=== PATIENT | female | born 1950 | race Two or more races ===

== ENCOUNTER 2023-05-24 08:34 | Emergency (ER) | payer OTHER ==
[~2023-05-24] VITALS: Ht 160 cm; Wt 81.6 kg
[2023-05-24] MEDS ORDERED: COZAAR100 MG PO (09:23)
[2023-05-24] MEDS ORDERED: GLUMETZA500 MG PO (09:23)
[2023-05-24] MEDS ORDERED: CRESTOR40 MG PO (09:23)
[2023-05-24] MEDS ORDERED: SYNTHROID75 MCG PO (09:24)
[2023-05-24 10:39] LABS: HEMATOCRIT 38.4 % (36.0-45.00); MEAN CELL VOLUME 90.2 fL (80.00-100.00); MEAN CORPUSCULAR HEMOGLOBIN 30.5 pg (27.00-32.0); MEAN CORPUSCULAR HGB CONC 33.8 g/dl (32.0-36.0); PLATELET COUNT 436 K/uL (150-450); RED BLOOD COUNT 4.26 M/uL (4.00-6.00); RED CELL DISTRIBUTION WIDTH 14.5 % (11.5-14.5)
[2023-05-24 12:32] LABS: ABG PH 7.456 (7.35-7.45); ABG PO2 84.4 mmHg (80-100); ABG pCO2 35.8 mmHg (35-45); BASE EXCESS 1.2 mmol/l; BICARBONATE 24.7 mmol/l (23-25); SaO2 96.9 %; Tco2 25.8 mmol/l; allen test SATISFACTORY; o2 21 %; puncture site RADIAL LEFT
== END 2023-05-24 12:54 | disposition home or self-care (01) ==
LOC: ER 08:35
PROVIDERS: General Practice
DX: U07.1 COVID-19 (principal); E11.9 Type 2 diabetes mellitus without complications; Z79.84 Long term (current) use of oral hypoglycemic drugs; I10 Essential (primary) hypertension; E03.9 Hypothyroidism, unspecified

== ENCOUNTER 2024-07-07 09:15 | Inpatient (IN) | payer OTHER ==
[~2024-07-07] VITALS: Ht 160 cm; Wt 80.7 kg
[~2024-07-07 09:15] MED LIST: COZAAR100 MG PO; CRESTOR40 MG PO; GLUMETZA500 MG PO; SYNTHROID75 MCG PO
[2024-07-07] MEDS ORDERED: ZETIA10 MG PO (09:28)
[2024-07-07] MEDS ORDERED: LIPITOR40 M1 PO (09:28)
[2024-07-07] MEDS ORDERED: CARVEDILOL6.25 M1 PO (09:28)
[2024-07-07 10:15] LABS: URINE BACTERIA 194.5 uL (0.0-1933); URINE EPITHELIAL CELLS 8.7 uL (0.0-38.8); URINE RBC 8.8 uL (0.0-20.8); URINE WBC 31.9 uL (0.0-23.2)
[2024-07-07 10:18] VITALS: BP 112/72
[2024-07-07 10:18] LABS: URINE APPEARANCE Clear; URINE BILIRRUBIN Negative (NEGATIVE); URINE BLOOD Small; URINE COLOR Yellow; URINE GLUCOSE Negative (NEGATIVE); URINE KETONE Negative (NEGATIVE); URINE LEUKOCYTE Trace; URINE NITRATE Negative; URINE PROTEIN Negative (NEGATIVE); URINE UROBILINOGEN 0.2 E.U./dl
[2024-07-07 10:21] LABS: URINE CAST 0.29 uL (0.0-1.40)
[2024-07-07 10:22] VITALS: BP 134/90
[2024-07-07 10:56] LABS: ALBUMIN 3.5 gm/dL (3.4-5.0); BILIRUBIN TOTAL 0.71 mg/dL (0.3-1.2); CALCIUM 9.9 mg/dL (8.5-10.1); CHOL HDL RATIO 2.2 (0-5.0); CREATININE SERUM 0.99 mg/dL (0.55-1.02); GFR 54.98; GLOBULINA 3.8 G/DL (2.4-3.5); POTASSIUM 3.84 mEq/L (3.5-5.1); TOTAL PROTEIN 7.3 gm/dL (6.4-8.2)
[2024-07-07 10:57] LABS: INR 1.03; PARTIAL THROMBOPLASTIN TIME 22.2 SECONDS (22.0-34.0); PROTHROMBIN TIME 11.2 SECONDS (9.0-11.5)
[2024-07-07 11:36] LABS: RH POSITIVE
[2024-07-07 12:07] LABS: HEMATOCRIT 36.1 % (36.0-45.00); HEMOGLOBIN 12.2 g/dL (12.0-15.00); MEAN CORPUSCULAR HEMOGLOBIN 31.4 pg (27.00-32.0); MEAN CORPUSCULAR HGB CONC 33.8 g/dl (32.0-36.0); PLATELET COUNT 305 K/uL (150-450); RED BLOOD COUNT 3.88 M/uL (4.00-6.00)
[2024-07-13] MEDS ORDERED: VANCOMYCIN HCL 1,000 MG VIAL ONE ×2 (09:25→09:32)
[2024-07-13] MEDS ORDERED: KETOROLAC TROMETHAMINE 60 MG VIAL IM ONE (09:25)
[2024-07-13] MEDS ORDERED: TRANEXAMIC ACID 100MG/1ML (1000MG) AMPUL IV ONE (09:26)
[2024-07-13] MEDS ORDERED: MORPHINE SULFATE 4 MG/ML CARTRIDGE IV ONE (10:45)
[2024-07-13] MEDS ORDERED: MORPHINE SULFATE 4 MG/ML CARTRIDGE IV PRN (12:45)
[2024-07-13] MEDS ORDERED: SODIUM CHLORIDE 0.45 % 1,000 ML IV SCH (12:45)
[2024-07-13] MEDS ORDERED: ONDANSETRON HCL 2 MG/ML VIAL IV PRN (12:45)
[2024-07-13] MEDS ORDERED: OxyCODONE HCL 5 MG TABLET (ROXICODONE) PO PRN (12:45)
[2024-07-13] MEDS ORDERED: INSULIN LISPRO 1,000 UNIT/10 ML UNITS SUBCUTANEO PRN (15:15)
[2024-07-13] MEDS ORDERED: ENALAPRILAT DIHYDRATE 1.25 MG/ML VIAL IV PRN (15:15)
[2024-07-13] MEDS ORDERED: DEXTROSE 50 % IN WATER 0.5 G/ML DISP.SYRIN IV PRN (15:15)
[2024-07-13] MEDS ORDERED: ATORVASTATIN CALCIUM 40 MG TABLET PO SCH (17:00)
[2024-07-13] MEDS ORDERED: GABAPENTIN 300 MG CAPSULE PO SCH (17:00)
[2024-07-13] MEDS ORDERED: ACETAMINOPHEN 500 MG GEL..CAP PO SCH (18:00)
[2024-07-13] MEDS ORDERED: MEPERIDINE HCL 25 MG/ML AMPUL IV ONE (19:10)
[2024-07-13] MEDS ORDERED: ACETAMINOPHEN 500 MG GEL..CAP PO ONE (19:30)
[2024-07-13] MEDS ORDERED: GABAPENTIN 300 MG CAPSULE PO ONE (19:30)
[2024-07-13 20:00] VITALS: BP 112/72
[2024-07-13] MEDS ORDERED: VANCOMYCIN HCL 1,000 MG in 0.9 % SODIUM CHLORIDE 250 ML IV SCH (21:00)
[2024-07-13] MEDS ORDERED: CARVEDILOL 6.25 MG TABLET PO SCH (21:00)
[2024-07-13 22:09] LABS: CALCIUM 8.8 mg/dL (8.5-10.1); CREATININE SERUM 0.85 mg/dL (0.55-1.02); GFR 65.56; POTASSIUM 4.13 mEq/L (3.5-5.1)
[2024-07-14 00:32] VITALS: BP 125/70
[2024-07-14 04:13] LABS: HEMATOCRIT 30.4 % (36.0-45.00); HEMOGLOBIN 10.4 g/dL (12.0-15.00); MEAN CELL VOLUME 91.5 fL (80.00-100.00); MEAN CORPUSCULAR HEMOGLOBIN 31.3 pg (27.00-32.0); MEAN CORPUSCULAR HGB CONC 34.2 g/dl (32.0-36.0); PLATELET COUNT 246 K/uL (150-450); RED BLOOD COUNT 3.32 M/uL (4.00-6.00); RED CELL DISTRIBUTION WIDTH 14.4 % (11.5-14.5)
[2024-07-14] MEDS ORDERED: LEVOTHYROXINE SODIUM 75 MCG TABLET PO SCH (06:00)
[2024-07-14 08:00] VITALS: BP 118/71
[2024-07-14] MEDS ORDERED: PERCOCET 5-3251 EACH PO (08:17)
[2024-07-14] MEDS ORDERED: CIPRO500 MG PO (08:17)
[2024-07-14] MEDS ORDERED: ELIQUIS2.5 MG PO (08:17)
[2024-07-14] MEDS ORDERED: LOSARTAN POTASSIUM 100 MG TABLET PO SCH (09:00)
[2024-07-14] MEDS ORDERED: SENNOSIDES 1 TAB TABLET PO SCH (09:00)
[2024-07-14] MEDS ORDERED: SODIUM CL ONE (13:22)
[2024-07-14] MEDS ORDERED: VANCOMYCIN HCL 1,000 MG VIAL IV NR (14:00)
[2024-07-14] MEDS ORDERED: APIXABAN 2.5 MG TABLET PO NR (14:00)
[2024-07-14 16:01] VITALS: BP 94/60
[2024-07-14] MEDS ORDERED: VITAMIN B COMPLEX 1 EACH PO SCH (17:00)
[2024-07-14] MEDS ORDERED: Cyanocobalamin/Mecobalamin 1 TAB.SL SL SCH (17:00)
[2024-07-14] MEDS ORDERED: SOD FERRIC GLUC COMPLX/SUCROSE 62.5 MG/5 ML AMPUL IV SCH (17:00)
[2024-07-14] MEDS ORDERED: APIXABAN 2.5 MG TABLET PO SCH (21:00)
[2024-07-14] MEDS ORDERED: VANCOMYCIN HCL 1,000 MG VIAL IV SCH (21:00)
[2024-07-15] VITALS: BP 107/65
[2024-07-15 07:40] LABS: HEMATOCRIT 30.7 % (36.0-45.00); HEMOGLOBIN 10.5 g/dL (12.0-15.00); MEAN CELL VOLUME 90.7 fL (80.00-100.00); MEAN CORPUSCULAR HGB CONC 34.1 g/dl (32.0-36.0); PLATELET COUNT 258 K/uL (150-450); RED BLOOD COUNT 3.39 M/uL (4.00-6.00); RED CELL DISTRIBUTION WIDTH 14.2 % (11.5-14.5)
[2024-07-15 08:00] VITALS: BP 134/73
[2024-07-15 08:03] LABS: CALCIUM 8.5 mg/dL (8.5-10.1); CREATININE SERUM 0.74 mg/dL (0.55-1.02); GFR 76.93; POTASSIUM 3.9 mEq/L (3.5-5.1)
[2024-07-15] MEDS ORDERED: IRON FUM,PS/FOLIC ACID/VITC/B3 1 CAP CAPSULE PO SCH (09:00)
[2024-07-15 15:00] VITALS: BP 138/79
== END 2024-07-15 18:48 | disposition home or self-care (01) | DRG 470 ==
LOC: OB/GYN 07-13 05:50 → O/R 07-13 05:50 → SURH 07-13 09:15 → OB/GYN 07-13 20:36
PROVIDERS: ADMIT Orthopaedic Surgery; ATTEND Orthopaedic Surgery
PROC: 0MN Bursae and Ligaments, Release (ICD-10-PCS; 2024-07-13)
PROC: 0SUD07Z Supplement Left Knee Joint with Autologous Tissue Substitute, Open Approach (ICD-10-PCS; 2024-07-13)
PROC: 0SRD0J9 Replacement of Left Knee Joint with Synthetic Substitute, Cemented, Open Approach (ICD-10-PCS; principal; 2024-07-13 12:30)
DX: M17.12 Unilateral primary osteoarthritis, left knee (principal); M22.12 Recurrent subluxation of patella, left knee; I10 Essential (primary) hypertension; E11.9 Type 2 diabetes mellitus without complications; Z79.4 Long term (current) use of insulin